=== PATIENT | male | born 1980 | race Caucasian/White ===

== ENCOUNTER 2024-10-05 09:26 | Inpatient (IN) | payer BC ==
[2024-10-05 09:50] VITALS: BMI 26.4
[2024-10-05] MEDS ORDERED: POLYETHYLENE GLYCOL (HEALTHYLAX) 3350 17 GM PACKET PO PRN (10:26)
[2024-10-05] MEDS ORDERED: DICYCLOMINE HCL 10 MG CAPSULE PO PRN (10:26)
[2024-10-05] MEDS ORDERED: IBUPROFEN 400 MG TABLET (FP) PO PRN (10:26)
[2024-10-05] MEDS ORDERED: LOPERAMIDE HCL 2 MG CAPSULE PO PRN (10:26)
[2024-10-05] MEDS ORDERED: BISMUTH SUBSALICYLATE 524 MG/30 ML PO PRN (10:26)
[2024-10-05] MEDS ORDERED: BENZOCAINE/MENTHOL (CHLORASEPTIC ) LOZENGE MM PRN (10:26)
[2024-10-05] MEDS ORDERED: MAG HYDROX/AL HYDROX/SIMETH 30 ML UNIT-DOSE CUP PO PRN (10:26)
[2024-10-05] MEDS ORDERED: ONDANSETRON *ODT* 4 MG TABLET SL PRN (10:26)
[2024-10-05] MEDS ORDERED: BENZONATATE 200 MG CAPSULE PO PRN (10:26)
[2024-10-05] MEDS ORDERED: guaiFENesin 600 MG TABLET.ER (FP) PO PRN (10:26)
[2024-10-05] MEDS ORDERED: NALOXONE (NARCAN) HCL 4 MG/0.1 ML SPRAY NS PRN (10:26)
[2024-10-05] MEDS ORDERED: MAGNESIUM HYDROX 2400MG/30ML ORAL SUSPENSION 30 ML CUP PO PRN (10:26)
[2024-10-05] MEDS ORDERED: diazePAM 5 MG TABLET ONE (11:35)
[2024-10-05] MEDS: diazePAM 5 MG TABLET PO SCH (11:40)
[2024-10-05] MEDS: diazePAM 5 MG TABLET PO PRN (20:13)
[2024-10-05] MEDS: THIAMINE 100 MG TABLET PO SCH (22:17)
[2024-10-05] MEDS: MELATONIN 5 MG TABLETS PO SCH (22:17)
[2024-10-06] MEDS: diazePAM 5 MG TABLET PO SCH (06:01)
[2024-10-06] MEDS: methaDONE HCL 40 MG DISPERSABLE TABLET PO SCH (06:01)
[2024-10-06] MEDS: PRENATAL VITAMINS W/ FOLIC ACID TABLET (FP) PO SCH (10:22)
[2024-10-06] MEDS: ACETAMINOPHEN 325 MG TABLET (FP) PO PRN (12:41)
[2024-10-07] MEDS: diazePAM 5 MG TABLET PO SCH (05:10)
[2024-10-07] MEDS: IBUPROFEN 600 MG TABLET (FP) PO PRN (05:15)
[2024-10-07] MEDS: METHOCARBAMOL 500 MG TABLET PO PRN (07:37)
[2024-10-08] MEDS: diazePAM 5 MG TABLET PO ONE (05:36)
[2024-10-08 09:22] VITALS: BP 106/65; PULSE 81; RESP 18; TEMP 97.7
== END 2024-10-08 10:38 | disposition home or self-care (01) | DRG 773 ==
LOC: YASAS 09:26 → Y3N 11:18
PROVIDERS: ADMIT Allergy & Immunology; ATTEND Allergy & Immunology
PROC: HZ2ZZZZ Detoxification Services for Substance Abuse Treatment (ICD-10-PCS; principal; 2024-10-05)
DX: F10.230 Alcohol dependence with withdrawal, uncomplicated (principal); F11.20 Opioid dependence, uncomplicated; F14.20 Cocaine dependence, uncomplicated; F17.210 Nicotine dependence, cigarettes, uncomplicated; Z59.00 Homelessness unspecified; Z88.2 Allergy status to sulfonamides; Z88.8 Allergy status to other drugs, medicaments and biological substances
CPT/HCPCS: 36415; 80305; 80307; 93005; 93010